=== PATIENT | female | born 1975 | race Two or more races ===

== ENCOUNTER 2024-04-01 08:51 | Outpatient (AMB) | payer OTHER, SELFPAY ==
--- NOTE | 2024-04-01 09:09 | A.OFFVIS_ITS ---
Intake Visit Reasons: New Pt - right knee pain Intake Note: Jennifer is a 48 year old female who presents today as a new patient for a evaluation of her right knee pain. No hx of injury. No hx of previous treatment. Patient reports ongoing pain for about 4 years in her right knee, however in her left knee her pain is off and on. She emotions that her pain is on the whole knee. Chemical Detection Expert Services: Chemical Detection Expert Present (Carolyn ([id number])) Allergies No Known Allergies Allergy (Verified 04/01/24 09:20) HPI HPI New Pt - right knee pain: Details: 48-year-old female who presents in the office today, as a new patient, for an evaluation of right knee pain. The patient was seen by Lizzeth Lopez PA-C, via telehealth visit on 01/16/24 for the chief complaint of atraumatic knee pain. She mentioned severe pain when ambulating up and down the stairs. She was then referred [place] [facility] [place] evaluation and treatment. While in the office today, the patient reports right knee pain, which has been ongoing for the past 4 years. She also reports intermittent left knee pain and locking. She is experiencing pain in her entire knee. The patient denies any history of injuries in the right knee. She never tried any previous treatment. The patient has a medical history of prediabetes. [facility] Social History (Updated 04/01/24 @ 09:23 by Nolberto Espinoza) Alcohol intake: never Patient Tobacco Use Status: Never used Tobacco Current occupational status: employed Current occupation: [employer] right hand dominant Review of Systems Const All systems reviewed & are unremarkable except as noted in HPI and below Physical Exam Const General: cooperative and no acute distress Orientation/consciousness: patient oriented x3 Resp Effort & Inspection: normal respiratory effort and able to speak in complete sentences Cardio Peripheral pulses: Peripheral pulses 2+ throughout Skin General skin exam: no rashes or lesions noted Lesions: no lesions Rashes: no rashes Neuro General: patient oriented x3 Extrem Other: Right knee: Prominence over the tibial tuberosity, Non tender to palpation. 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 ROM is 0-90 degrees. Tenderness to palpation in the medial and lateral joint lines. Positive Ramya?s in the medial and lateral joint lines. NVI. Psych Appearance: well kempt Mental Status: mental status grossly normal Assessment & Plan Assessment & Plan (1) Internal derangement of right knee: Code(s): M23.91 - Unspecified internal derangement of right knee Category: Medical (2) Osteoarthritis of right knee: Code(s): M17.11 - Unilateral primary osteoarthritis, right knee Category: Medical Plan Ms. Jerez is a 48-year-old female who presents in the office today, as a new patient, for an evaluation of right knee pain. The patient was seen by Lizzeth Lopez PA-C, via telehealth visit on 01/16/24 for the chief complaint of atraumatic knee pain. She mentioned severe pain when ambulating up and down the stairs. She was then referred [place] [facility] [place] further evaluation and treatment. While in the office today, the patient reports right knee pain, which has been ongoing for the past 4 years. She also reports intermittent left knee pain. She is experiencing pain in her entire knee. The patient denies any history of injuries in the right knee. She never tried any previous treatment. The patient has a medical history of prediabetes. The patient feels a mechanical blockage restricting her from moving her right knee past 90 degrees. I would like to obtain an MRI of the right knee to evaluate if there is any surgical intervention that is warranted at this time. Therefore, I have ordered an MRI of the right knee today. Follow-up will be after obtaining the MRI, or sooner if needed. X-rays of the right knee, which were obtained while in the office today and were reviewed by me, Latoya Pham PA-C, revealed: osteoarthritis, remnants of Abad-Schlatter disease. Orders: Orders XR knee RT 3V 04/01/24 M25.569 - Pain in unspecified knee XR knee LT 1V 04/01/24 M25.569 - Pain in unspecified knee MR knee RT wo con 04/01/24 M23.91 - Unspecified internal derangement of right knee Patient Instructions: Scribed by Kristin Sung, nuclear medicine medical director, for Latoya Pham PA-C on 04/01/2024 at 9:32 am EST. Coding Level of Care Code New Pt Level 4 (53220) Diagnoses Internal derangement of right knee M23.91 Osteoarthritis of right knee M17.11
== END 2024-04-01 09:41 | disposition home or self-care (01) ==
PROVIDERS: Visit Provider Physician Assistant
DX: M23.91 Unspecified internal derangement of right knee (principal); M17.11 Unilateral primary osteoarthritis, right knee
CPT/HCPCS: 99204

== ENCOUNTER 2024-04-01 09:07 | Outpatient (REF) | payer OTHER, SELFPAY | END 2024-04-01 09:08 | disposition home or self-care (01) | LOC: HO.HOSX 09:07 | PROVIDERS: Visit Provider Physician Assistant | DX: M25.569 Pain in unspecified knee (principal) | CPT/HCPCS: 73560; 73562 ==